=== PATIENT | male | born 1955 | race Caucasian/White ===

== ENCOUNTER 2018-05-28 07:09 | Day surgery (SDC) | payer OTHER, SELFPAY ==
--- NOTE | 2018-05-28 | GASB_PTH ---
PATIENT: SARAH HOSKINS LOC: EN U#:[id number] AGE/SX: 62/M ROOM: RE05/28/[address]: Dr. Eder Bahena MD : 1955 BED: DIS: 05/28/2018 SPEC #: [id number] RECD: 05/28/18 11:06 STATUS: CARLOS ALBERTO GENNY #: [id number] SHANIKA: 05/28/18 00:[address]: Eder Bahena DEPT: SURGICAL PATHOLOGY RECD BY: Darian Stubbs ENTERED: 05/28/18 11:07 SP TYPE: Gastric Bx OTHR DR: Antionette Bolivar PA-C Tissues: Gastric mucous membrane Procedures: Surgery Specimen Level IV HEADER OPERATION: EGD ([facility] [place]) PRE-OP DIAGNOSIS: GERD, esophagitis, pharyngoesophageal dysphagia TISSUE SUBMITTED: Gastric polyp MICROSCOPIC DIAGNOSIS Gastric polyp, biopsy: Consistent with fundic gland polyp. See comment. ALLAN:skinny 05/30/18 COMMENT Immunohistochemistry for Helicobacter pylori can be performed if clinically indicated. Please notify the Laboratory if it is needed. MICROSCOPIC DESCRIPTION Slides are reviewed. GROSS DESCRIPTION Received in fixative is one container labeled with the patient's name and designated gastric polyp. The specimen consists of a pink-red polyp measuring 1 x 1 x 0.7 cm. The apparent base is inked. The specimen is trisected and submitted entirely in one cassette. / SJ:skinny 05/28/18 TC:1 CPT: 20468
[2018-05-28 07:31] VITALS: BP 122/82; PULSE 74; RESP 16; TEMP 36.6; O2SAT 98; BMI 23.3
[2018-05-28 08:21] LABS: Bedside Glucose 126 mg/dL (70-110)
[2018-05-28 08:25] VITALS: BP 122/82; BP 92/60; PULSE 75; RESP 16; TEMP 36.4; O2SAT 95
--- NOTE | 2018-05-28 08:28 | OP.ENDO_ITS ---
Patient Name: Jose Royal Procedure Date: 05/28/2018 8:03 AM Date of : 1955 Age: 62 Procedure: Upper GI endoscopy Indications: Esophageal dysphagia Providers: Eder Bahena MD Referring MD: Karina Bolivar PA-C Medicines: See the Anesthesia note for documentation of the administered medications Patient Profile: This is a 62 year old male. Refer to note in patient chart for documentation of history and physical. Patient has symptoms of dysphagia with both liquids and solids. Complications: No immediate complications. Procedure: Pre-Anesthesia Assessment: - Prior to the procedure, a History and Physical was performed, and patient medications and allergies were reviewed. The patient's tolerance of previous anesthesia was also reviewed. The risks and benefits of the procedure and the sedation options and risks were discussed with the patient. All questions were answered, and informed consent was obtained. Prior Anticoagulants: The patient has taken no previous anticoagulant or antiplatelet agents. ASA Grade Assessment: II - A patient with mild systemic disease. After reviewing the risks and benefits, the patient was deemed in satisfactory condition to undergo the procedure. After obtaining informed consent, the endoscope was passed under direct vision. Throughout the procedure, the patient's blood pressure, pulse, and oxygen saturations were monitored continuously. The gastroscope was introduced through the mouth, and advanced to the second part of duodenum. The upper GI endoscopy was accomplished without difficulty. The patient tolerated the procedure well. Scope In: 8:15:10 AM Scope Out: 8:20:20 AM Total Procedure Duration Time 0 hours 5 minutes 10 seconds Findings: The Z-line was regular and was found 38 cm from the incisors. Multiple 10 mm pedunculated and sessile polyps with no bleeding and no stigmata of recent bleeding were found in the entire examined stomach. There must between 50-100 polyps in his Stomach. A polyp was removed with a hot snare. Resection and retrieval were complete. The examined duodenum was normal. No biopsies or other specimens were collected for this exam. Impression: - Z-line regular, 38 cm from the incisors. - Multiple gastric polyps. Resected and retrieved. - Normal examined duodenum. No specimens collected. Recommendation: - Discharge patient to home. - Resume previous diet. - Continue present medications. - Await pathology results. - Repeat upper endoscopy at appointment to be scheduled for surveillance of multiple polyps. - Perform routine esophageal manometry at appointment to be scheduled. To Evaluate dysphagia. Procedure Code(s): --- Professional --- 08877, Esophagogastroduodenoscopy, flexible, transoral; with removal of tumor(s), polyp(s), or other lesion(s) by snare technique Diagnosis Code(s): --- Professional --- K31.7, Polyp of stomach and duodenum R13.14, Dysphagia, pharyngoesophageal phase CPT copyright 2017 [employer]. All rights reserved. The codes documented in this report are preliminary and upon glass cleaner review may be revised to meet current compliance requirements. MD Eder Gomez MD 05/28/2018 8:28:06 AM This report has been signed electronically. Number of Addenda: 0 Note Initiated On: 05/28/2018 8:03 AM
[2018-05-28 08:30] VITALS: BP 103/73; BP 122/82; PULSE 72; RESP 16; O2SAT 95
[2018-05-28 08:35] VITALS: BP 104/67; BP 122/82; PULSE 72; RESP 16; O2SAT 96
[2018-05-28 08:40] VITALS: BP 104/74; BP 122/82; PULSE 70; RESP 16; TEMP 36.5; O2SAT 96
[2018-05-28 09:01] VITALS: BP 122/82
== END 2018-05-28 09:01 | disposition home or self-care (01) ==
LOC: EN 07:10 → AC 07:11
PROVIDERS: Family Provider Family Medicine; PCP Family Medicine; Referring Provider Surgery; Visit Provider Surgery
PROC: 0DJ08ZZ Inspection of Upper Intestinal Tract, Via Natural or Artificial Opening Endoscopic (ICD-10-PCS; CPT 43235; principal; 2018-05-28 08:25)
DX: K31.7 Polyp of stomach and duodenum (principal); R13.14 Dysphagia, pharyngoesophageal phase; K21.9 Gastro-esophageal reflux disease without esophagitis; I10 Essential (primary) hypertension; E11.9 Type 2 diabetes mellitus without complications; J45.909 Unspecified asthma, uncomplicated; Z79.899 Other long term (current) drug therapy
CPT/HCPCS: 43251; 82962; 88305; J7120

== ENCOUNTER 2018-06-19 07:33 | Day surgery (SDC) | payer OTHER, SELFPAY ==
[2018-06-19 07:44] VITALS: BP 102/87; PULSE 91; RESP 16; TEMP 36.7; O2SAT 98
--- OUTSIDE RECORDS SUMMARY | 2018-08-05 00:46 | XMS RPT_ITS ---
:1955 Author Organization OHIP Support Name Relationship Address Phone [employer] Unavailable [address] + [place] [address] EZE HOSKINS Unavailable [phone] + [place] [address] [employer] Unavailable [address] + [place] [address] EZE HOSKINS Unavailable [address] + [place] [address] [employer] Unavailable [address] + [place] [address] EZE HOSKINS Unavailable [address] + [place] [address] [employer] Unavailable [address] + [place] [address] EZE HOSKINS Unavailable [address] + [place] [address] [employer] Unavailable [address] + [place] [address] EZE HOSKINS Unavailable [address] + [place] [address] EZE HOSKINS Unavailable [address] [facility] [address] + [place] [address] S Unavailable Unavailable Unavailable EZE HOSKINS Unavailable [address] [place] [address] NOT GIVEN Unavailable Unavailable Unavailable MINA GOFF Unavailable Unavailable + EZE HOSKINS Unavailable [address] [place] [address] NOT GIVEN Unavailable Unavailable Unavailable MINA GOFF Unavailable Unavailable + HOSKINS, EZE Unavailable [address] [place] [address] NOT GIVEN Unavailable Unavailable Unavailable DENVERRONYA Unavailable Unavailable + EZE HOSKINS Unavailable [address] [place] [address] NOT GIVEN Unavailable Unavailable Unavailable DENVERRONYA Unavailable Unavailable + EZE HOSKINS Unavailable [address] [place] [address] NOT GIVEN Unavailable Unavailable Unavailable DENVERRONYA Unavailable Unavailable + KARINA HOSKINSBERLY Unavailable [address] [place] [address] NOT GIVEN Unavailable Unavailable Unavailable DENVERMINA Unavailable Unavailable + EZE HOSKINS Unavailable [address] [place] [address] NOT GIVEN Unavailable Unavailable Unavailable DENVERRONYA Unavailable Unavailable + EZE HOSKINS Unavailable [address] [place] [address] NOT GIVEN Unavailable Unavailable Unavailable DENVERRONYA Unavailable Unavailable + Care Team Providers Name Role Phone HORN, BRICE DPM Admitting Unavailable HORN, BRICE DPM Attending Unavailable HORN, BRICE DPM Primary Care Unavailable NEWPORT, EZE Consulting Unavailable PROVIDER, UNKNOWN Consulting Unavailable HORN, BRICE DPM Admitting Unavailable HORN, BRICE DPM Attending Unavailable HORN, RBICE DPM Primary Care Unavailable [place], EZE Consulting Unavailable PROVIDER, UNKNOWN Consulting Unavailable HORN, BRICE DPM Admitting Unavailable HORN, BRICE DPM Attending Unavailable HORN, BRICE DPM Primary Care Unavailable NEW[place], EZE Consulting Unavailable NEW[place], EZE Referring Unavailable PROVIDER, UNKNOWN Consulting Unavailable ANATOLY FALCON DO Admitting Unavailable ANATOLY FALCON DO Attending Unavailable [place], EZE Referring Unavailable ANATOLY FALCON DO Primary Care Unavailable [place], EZE Consulting Unavailable PROVIDER, UNKNOWN Consulting Unavailable DR CELINA APONTE Admitting Unavailable FADI, DR CELINA Aburto Attending Unavailable DR CELINA APONTE Primary Care Unavailable [place], EZE Consulting Unavailable NEW[place], EZE Referring Unavailable PROVIDER, UNKNOWN Consulting Unavailable [place], EZE Admitting Unavailable [place], EZE Attending Unavailable NEW[place], EZE Primary Care Unavailable [place], EZE Consulting Unavailable PROVIDER, UNKNOWN Consulting Unavailable ARELY, ONOFRE T Admitting Unavailable ARELY, ONOFRE T Attending Unavailable ARELY, ONOFRE T Primary Care Unavailable [place], EZE Consulting Unavailable PROVIDER, UNKNOWN Consulting Unavailable HILLS, EZE Admitting Unavailable HILLS, EZE Attending Unavailable HILLS, EZE Primary Care Unavailable HILLS, EZE Consulting Unavailable PROVIDER, UNKNOWN Consulting Unavailable [place], Eder Attending Unavailable [place], Eze PA-C Referring Unavailable Calabretta, Trevon Attending Unavailable [place], Eder Referring Unavailable [place], Eder Attending Unavailable [place], Eze PA-C Referring Unavailable [place], Eder Attending Unavailable Shruti, Eder Referring Unavailable [place], Eze PA-C Primary Care Unavailable Calabretta, Trevon Attending Unavailable Calab[place]ta, Trevon Referring Unavailable [place], Eze PA-C Primary Care Unavailable Shruti, Eder Attending Unavailable PROBLEMS PROBLEMS DATE TYPE CONDITION / CODE ATTENDING STATUS SOURCE Unknown K21.9 - Cal[place]andro, Active [place] 8 Gastro-esophageal Trevon [facility] reflux disease without Hospital esophagitis / Repository K21.9(ICD-10) Unknown R13.14 - Dysphagia, [place], Active [place] 8 pharyngoesophageal [facility] phase / R13.14(ICD-10) Hospital Repository Principle Sebaceous cyst / ARELY, Active Jez [place] 8 Diagnosis L723(ICD-10) [place] [facility] Repository PROCEDURES PROCEDURES No Procedure Records FoundRESULTS RESULTS SURGERY VISIT REPORT Observed: 06/30/2018 Status: F Source: [place] 3:53 PM [facility] REPOSITORY [facility] [address] [place] [address] [address] [place] [address] OFFICE VISIT Date of Service: 06/26/18 MR#: [id number] Acct: [id number] Name: SARAH HOSKINS Rep #: [id number] : 1955 Provider: Eder Bahena MD Age/Sex: 62/M Location: [facility] Status: Signed Intake Intake Visit Reasons: mano results Chief Complaint: post manometry Transmitter Chief Required: No Is patient in pain?: No Allergies oxycodone [From Percocet] Adverse Reaction (Verified 06/26/18 12:52) makes him feel funny Medications Lisinopril [Zestril] 20 mg PO DAILY 04/13/16 [History Confirmed 05/28/18] albuterol sulfate HFA 90 mcg/actuation aerosol inhaler 1 puff INHALATION Q6H PRN 05/15/18 [History Confirmed 05/28/18] omeprazole 40 mg capsule,delayed release 40 mg PO DAILY 05/15/18 [History Confirmed 05/28/18] ranitidine 150 mg capsule 300 mg PO DAILY cap 05/15/18 [History Confirmed 05/28/18] Subjective Details: Patient is status post an EGD for dysphasia completed on 05/28/2018. Patient was noted to have a regular Z line located at 38 cm from the incisors. Patient had multiple polyps located within his abdomen. I biopsied 1 of them and this came back as a fundic gland polyp. Patient also underwent esophageal manometry which showed 10 swallows analyzed. There was good bolus clearance and no motility disorder identified. He had a normal lower esophageal sphincter pressure. It was an entirely normal study. Objective Details: Patient's abdomen is soft and nontender. Assessment AND Plan Problems 1. GERD (gastroesophageal reflux disease) K21.9 2. Dysphagia R13.10 Plan At this point I would like for the patient to restart his proton pump inhibitor. He does get good relief with this at times. I am going to see him back if the proton pump inhibitor is not working. If that is the case we will need to perform an EGD with 48-hour pH probe to then evaluate him to see if he will need a Wiley fundoplication. If he continues to do well he will need to have another esophagogastroduodenoscopy in 3 years. 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 Coding Level of Care Code Off vis,est,level 2 Diagnoses GERD (gastroesophageal reflux disease) K21.9 Dysphagia R13.10 06/30/18 3172 <Electronically signed by Eder Bahena MD> Date Eder Bahena MD Cosigner Signature: Date (if applicable) CC: INA Bolivar OPERATIVE REPORT - Observed: 05/28/2018 Status: F Source: [place] ENDOSCOPY 8:28 AM [facility] REPOSITORY [facility] Medical Records Department [address] [place] [address] Operative Report - Endoscopy MR#: [id number] Acct: [id number] Name: SARAH HOSKINS Rep #: [id number] : 1955 62 From: Eder Bahena MD PCP: Eze Bolivar PA-C Status: [facility] Patient Name: Sarah Hoskins Procedure Date: 05/28/2018 8:03 AM Date of : 1955 Age: 62 Procedure: Upper GI endoscopy Indications: Esophageal dysphagia Providers: Eder Bahena MD Referring MD: Karina Bolivar PA-C Medicines: See the Anesthesia note for documentation of the administered medications Patient Profile: This is a 62 year old male. Refer to note in patient chart for documentation of history and physical. Patient has symptoms of dysphagia with both liquids and solids. Complications: No immediate complications. Procedure: Pre-Anesthesia Assessment: - Prior to the procedure, a History and Physical was performed, and patient medications and allergies were reviewed. The patient's tolerance of previous anesthesia was also reviewed. The risks and benefits of the procedure and the sedation options and risks were discussed with the patient. All questions were answered, and informed consent was obtained. Prior Anticoagulants: The patient has taken no previous anticoagulant or antiplatelet agents. ASA Grade Assessment: II - A patient with mild systemic disease. After reviewing the risks and benefits, the patient was deemed in satisfactory condition to undergo the procedure. After obtaining informed consent, the endoscope was passed under direct vision. Throughout the procedure, the patient's blood pressure, pulse, and oxygen saturations were monitored continuously. The gastroscope was introduced through the mouth, and advanced to the second part of duodenum. The upper GI endoscopy was accomplished without difficulty. The patient tolerated the procedure well. Scope In: 8:15:10 AM Scope Out: 8:20:20 AM Total Procedure Duration Time 0 hours 5 minutes 10 seconds Findings: The Z-line was regular and was found 38 cm from the incisors. Multiple 10 mm pedunculated and sessile polyps with no bleeding and no stigmata of recent bleeding were found in the entire examined stomach. There must between 50-100 polyps in his Stomach. A polyp was removed with a hot snare. Resection and retrieval were complete. The examined duodenum was normal. No biopsies or other specimens were collected for this exam. Impression: - Z-line regular, 38 cm from the incisors. - Multiple gastric polyps. Resected and retrieved. - Normal examined duodenum. No specimens collected. Recommendation: - Discharge patient to home. - Resume previous diet. - Continue present medications. - Await pathology results. - Repeat upper endoscopy at appointment to be scheduled for surveillance of multiple polyps. - Perform routine esophageal manometry at appointment to be scheduled. To Evaluate dysphagia. Procedure Code(s): --- Professional --- 80406, Esophagogastroduodenoscopy, flexible, transoral; with removal of tumor(s), polyp(s), or other lesion(s) by snare technique Diagnosis Code(s): --- Professional --- K31.7, Polyp of stomach and duodenum R13.14, Dysphagia, pharyngoesophageal phase CPT copyright 2017 [employer]. All rights reserved. The codes documented in this report are preliminary and upon senior reservations agent review may be revised to meet current compliance requirements. MD Eder Gomez MD 05/28/2018 8:28:06 AM This report has been signed electronically. Number of Addenda: 0 Note Initiated On: 05/28/2018 8:03 AM 05/28/1828 Date Eder Ellisignmalina Signature: Date (if indicated) CC: INA Bolivar; Eedr Bahena MD Date Dictated: 05/28/18802 Date Transcribed: Under Water Assistant: MILAGROS Signed BEDSIDE GLUCOSE Collected: 05/28/2018 Status: F Source: [place] 7:25 AM [facility] REPOSITORY TYPE CODE TESTS RESULT OUT OF REFERENCE UNITS RANGE LAB L501.080 70-110 mg/dL High BEDSIDE GLU 126 Result Comment: MANAGEMENT OF PATIENT CARE PER NURSING PROTOCOL Performed By: #### L501.080 #### [facility] Point of Care [address] [place] [address] GASTRIC BIOPSY Observed: 05/28/2018 Status: F Source: [place] 12:00 AM [facility] REPOSITORY Patient: SARAH HOSKINS : 1955 (62/M) Acct Num: [id number] Phys: Shruti BERUMEN,Eder Unit Num: [id number] Loc: EN Specimen: [id number] Received: 05/28/181105 Spec Type: Gastric Bx TISSUES 1 TISSUES: Gastric mucous membrane COMMENT Immunohistochemistry for Helicobacter pylori can be performed if clinically indicated. Please notify the Laboratory if it is needed. GROSS DESCRIPTION Received in fixative is one container labeled with the patient's name and designated gastric polyp. The specimen consists of a pink- red polyp measuring 1 x 1 x 0.7 cm. The apparent base is inked. The specimen is trisected and submitted entirely in one cassette. / ALLAN:skinny 05/28/18 TC:1 CPT: 54459 HEADER OPERATION: EGD ([facility] PRE-OP DIAGNOSIS: GERD, esophagitis, pharyngoesophageal dysphagia TISSUE SUBMITTED: Gastric polyp MICROSCOPIC DESCRIPTION Slides are reviewed. MICROSCOPIC DIAGNOSIS Gastric polyp, biopsy: Consistent with fundic gland polyp. See comment. SJ:skinny 05/30/18 Signed Myles Diaz 05/30/18 <signature on file> Performed By: #### PGASB #### [facility] [address] [place], [address] SURGERY VISIT REPORT Observed: 05/15/2018 Status: F Source: [place] 3:12 PM [facility] REPOSITORY [facility] [address] [place] [address] OFFICE VISIT Date of Service: 05/15/18 MR#: [id number] Acct: [id number] Name: SARAH HOSKINS Rep #: [id number] : 1955 Provider: Eder Bahena MD Age/Sex: 62/M Location: [facility] Status: Signed Intake Vital Signs05/15/18 Height 5 ft 9 in 05/15/18 Weight: 150 lb 4 oz 05/15/18 Body Mass Index (BMI) 22.1 05/15/18 Blood Pressure 127/78 H Intake Visit Reasons: Upper Scope issues swallowing Chief Complaint: dysphagia, hx dilatation Transmitter Chief Required: No Is patient in pain?: No Allergies oxycodone [From Percocet] Adverse Reaction (Verified 05/15/18 14:35) makes him feel funny Medications Lisinopril [Zestril] 20 mg PO DAILY 04/13/16 [History Confirmed 05/15/18] albuterol sulfate HFA 90 mcg/actuation aerosol inhaler 1 puff INHALATION Q6H PRN 05/15/18 [History Confirmed 05/15/18] omeprazole 40 mg capsule,delayed release 40 mg PO DAILY 05/15/18 [History Confirmed 05/15/18] ranitidine 150 mg capsule 300 mg PO DAILY cap 05/15/18 [History Confirmed 05/15/18] PFSH Medical History Asthma (Acute) Back pain (Acute) Esophageal stricture (Acute) GERD (gastroesophageal reflux disease) (Acute) History of esophageal dilatation (Acute) HTN (hypertension) (Chronic) Surgical History History of colonoscopy (Acute) History of esophagogastroduodenoscopy (EGD) (Acute) History of hernia repair (Acute) Family History Father Diabetes Hypertension Mother Cancer uterine Social History Smoking Status: Never smoker HPI HPI HPI: SARAH HOSKINS, is a 62 M who presents to the office today for evaluation for an EGD. Patient has had numerous EGDs in the past all of them done by Dr. Mejia at the [facility]. He has had numerous dilatations with Dr. Mejia as well. Over the last several months he has noticed some complaints of difficulty swallowing. Feels as if something is getting stuck in his esophagus. He states that it has been located in the neck throat and substernal areas. Seems to be initially solids would only aggravate him now sometimes liquids also aggravate him. He is currently taking omeprazole for his dysphasia and reflux symptoms. ROS General General: Yes fatigue; no weight change, appetite, colon cancer, breast cancer or weakness HEENT HEENT: Yes difficulty swallowing; no eye injury, eye surgery, swollen glands or hoarseness Endo Endocrine: No thyroid disease, diabetes mellitus, thyroid cancer, Hair loss, heat intolerance or cold intolerance Musc Musculoskeletal: Yes back problems; no arthritis, rheumatoid arthritis, gout or joint pain Cardio Cardiovascular: Yes high blood pressure; no murmur, pacemaker, heart disease, atrial fibrillation, heart attack, heart stent, palpitations, shortness of breat with exertion or chest pain Resp Respiratory: No shortness of breath, No sleep apnea, No cough, No COPD, Yes asthma, No emphysema, No wheezing Gastro Gastrointestinal: No abdominal pain, No nausea or vomiting, No diarrhea, No constipation, No blood in stool, Yes acid reflux, No hemorrhoids, No ulcers, No gallbladder problem, No black,tarry stools Additional Details: pancreatitis Michael Hematologic: No blood thinners, No blood disorders, No bleeding, No anemia, No blood clots Neuro Neurologic: No weakness Exam Const General: well developed, no acute distress, well hydrated Orientation: oriented to person, oriented to place, oriented to time [facility] Head: normocephalic, atraumatic Ears: external ears normal Mouth: moist mucous membranes Eyes Sclera: sclerae normal Pupils: normal by confrontation Neck Neck: no lymphadenopathy noted Neck mass: No Thyroid: symmetrical, thyroid normal Chest Chest palpation AND inspection: normal inspection of the chest Resp Effort AND Inspection: normal respiratory effort Auscultation: clear to auscultation bilaterally Percussion: percussion normal Cardio Rate: regular rate Rhythm: regular rhythm Heart Sounds: no murmurs GI Palpation: soft, no masses, no hepatosplenomegaly, nontender Rectal Exam: other Other: Rectal exam deferred. Extrem General: no clubbing, cyanosis or edema, normal to inspection Assessment AND Plan Problems 1. Gastroesophageal reflux disease, esophagitis presence not specified K21.9 2. Pharyngoesophageal dysphagia R13.14 Plan I have discussed the above with the patient. I have offered the patient esophagogastroduodenoscopy for evaluation. I have explained the risks/benefits of the procedure and described the procedure. I have discussed the risks with the patient, including but not limited to: infection, bleeding, perforation of the GI tract requiring emergency surgery, inability to complete the procedure, injury to any internal organs, complications of anesthesia, etc. - the patient understands and agrees to proceed. I have answered all the patient's questions to the patient's satisfaction and the patient has no further questions. The patient has been given instructions for the colon cleansing preparation. Orders Orders: Coding Level of Care Code Off vis,new,level 3 Diagnoses Gastroesophageal reflux disease, esophagitis presence not specified K21.9 Esophagitis presence: esophagitis presence not specified Pharyngoesophageal dysphagia R13.14 Dysphagia type: pharyngoesophageal phase 05/15/18 1512 <Electronically signed by Eder Bahena MD> Date Eder Bahena MD Cosigner Signature: Date (if applicable) CC: INA Bolivar FINAL SURGICAL Observed: 04/14/2018 Status: F Source: [facility] PATHOLOGY REPORT 10:27 [facility] REPOSITORY . Pathology Reports Accession: Collected Date/Time: Received Date/Time: Pathologist: [id number] 04/14/2018 10:27 EDT 04/15/2018 08:05 MD NOLBERTO ORTIZ Final Surgical Pathology Report DIAGNOSIS: RIGHT SHOULDER, EXCISION: - ELASTOFIBROMA (SEE COMMENT). Comment: Immunohistochemical stains and special stains with appropriate controls were used in the evaluation of this specimen. These stains include muscle specific actin, CD68, trichrome stain and elastic stain. 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 This case was also reviewed by Dr. Enrique Parson who agrees with the above diagnosis. COMMENT: [facility] #[id number] CLINICAL INFORMATION: SEBACEOUS CYST SPECIMEN: A SKIN, CYST- RIGHT SHOULDER GROSS DESCRIPTION: Received in formalin is an ovoid somewhat lobulated segment of yellow-tadeo tissue measuring 3.0 x 1.5 x 0.6 cm. The specimen is sectioned. Cut surface is tadeo-white and fibrous. RS-2 dictated by Hunter Guillen M.D. Dictated by NOLBERTO GUILLEN MD MICROSCOPIC DESCRIPTION: Slides reviewed. Electronically Signed by Pathology Report verified by [facility] Electronically signed by NOLBERTO GUILLEN MD Sign out Date: 04/18/2018 16:13 Performing Lab: [facility], [address] [place] [address] Performed By: #### SPFR #### [place] [address] ORBITS (FOR MRI Observed: 03/12/2018 Status: F Source: [place] ONLY) 10:02 AM [place] [address] Patient: SARAH HOSKINS Phone#: : 1955 Age: 62 Gender: M Pt. Type: Out Account: [id number] Location: [facility] Ordering: [facility] Exam Date: 03/12/2018/9:41 Family Phys: Charge Code: 225862 Physician: [place] Order #: [id number] [id number] Dose#: PROCEDURE: X-RAY ORBIT BILAT MRI SCREENING FOREIGN BODY COMPARISON: None. INDICATIONS: Clearance for MRI FINDINGS: ORBITS: Negative for metallic foreign body. OTHER: Mucosal thickening is present in the right maxillary sinus. CONCLUSION: 1. There is no radiopaque foreign body identified in the orbits. Dictated by: Roselia Olmstead MD on 03/12/2018 at 14:03 Approved by: Roselia Olmstead MD on 03/12/2018 at 14:03 EMERGENCY REPORT Observed: 11/14/2017 Status: F Source: [place] 7:32 AM [facility] EMERGENCY ROOM REPORT NAME ACCOUNT SEX AGE ADMIT DISCHARGE PT MED. RECORD# NUMBER DATE DATE TYPE SARAH HOSKINS [id number] M 62 11/12/17 11/12/17 3 L [address] ROOM: ER DATE OF : 1955 DICTATING PHYSICIAN: Celina Aponte HISTORY OF PRESENT ILLNESS: The patient came in. The patient had an allergic reaction to his right hand. He was stung by a bee an hour prior and then he started having difficulty swallowing. He was able to breathe. He had no chest pain. He had shortness of breath. He had this throat sensation and presents to the emergency department. He says he has been stung by bees in the past. PAST MEDICAL HISTORY: Unremarkable. PAST SURGICAL HISTORY: Hernia. REVIEW OF SYSTEMS: Eight systems reviewed and negative except as mentioned above. PHYSICAL EXAMINATION: He is afebrile. Pulse 84, respirations 16, blood pressure 150/102, and pulse ox 99% on room air. Head is normocephalic and atraumatic. Eyes: Pupils are equal, round, and reactive to light. Extraocular muscles intact. Nares are patent. Throat has good oral moisture. Uvula is midline. Neck is supple without petechiae or rash. Heart without murmur. S1 equals S2. No S3 or S4 appreciated. Lungs are clear to auscultation bilaterally. No rales, rhonchi, or retractions. Abdomen is soft, nontender, and nondistended. Skin is warm and dry. EMERGENCY DEPARTMENT COURSE AND TREATMENT: An IV was established. The patient was given fluids. He was given Solu-Medrol and Benadryl. DIAGNOSIS: Allergic reaction bee sting to right hand with generalized reaction. PLAN/DISPOSITION: I did write him for an EpiPen, and he will be discharged in stable condition. Dictated By: Celina Aponte DO 11/12/17 23:14 JOB #: [id number] Transcribed By: am 11/13/17 15:25 Electronically signed by: Page 1 of 2 SARAH HOSKINS Emergency Room Report ES Celina Aponte D.O. 11/14/17 07:32 Page 2 of 2 SARAH HOSKINS Emergency Room Report EMERGENCY REPORT Observed: 08/30/2017 Status: F Source: [place] 8:29 [place] [facility] [place] NAME NUMBER SEX AGE ADMIT DISC TYPE MED.RECORD# GATO Awad [id number] M 61 08/20/17 08/20/17 E.R. [id number] ROOM:ER-I DATE OF :1955 PHYSICIAN NO.:[id number] PHYSICIAN NAME:E-Sign: Dr. Anatoly Falcon D.O. PHYSICIAN:YOLANDA CHASE PHYSICIAN: YOLANDA CARDOSO ADDENDUM: DIAGNOSTIC DATA: X-rays obtained of the right forearm were negative for any fracture. Ultrasound of the right upper arm was negative for DVT. EMERGENCY DEPARTMENT COURSE AND TREATMENT: The patient was placed in an Andrew warp to the right forearm and placed on Naprosyn 500 mg 1 p.o. b.i.d. with food, dispensed #20 with no refill. DIAGNOSIS: Tendinitis right forearm. PLAN/DISPOSITION: He is to rest, no heavy lifting, repetitive, or exertional activities. Moist heat to the affected area 20 minutes at a time 4 to 6 times per day, and to follow up with his primary care physician in 3 to 5 days for reevaluation. His primary care physician is Karina Bolivar. Nursing notes reviewed. Discussed all the findings with the patient, and he verbalized understanding. D: Anatoly Falcon DO TD: 14:57 JOB #: [id number] Electronically signed by: E-Sign: Dr. Anatoly Falcon D.O. 08/30/17 08:29 Transcribed by: am 08/21/2017 17:56 Electronically signed by E-Sign: Dr. Anatoly Falcon D.O. 08/30/17 08:29 EMERGENCY ROOM REPORT GATO SARAH Delmi 1 [facility] EMERGENCY DEPARTMENT REPORT NAME NUMBER SEX AGE ADMIT DISC TYPE MED.RECORD# GATO Awad [id number] M 61 08/20/17 08/20/17 E.R. [id number] ROOM:ER-I DATE OF :1955 PHYSICIAN NO.:[id number] PHYSICIAN NAME:E-Sign: Dr. Anatoly Falcon D.O. PHYSICIAN:YOLANDA CHASE PHYSICIAN: YOLANDA CARDOSO EMERGENCY ROOM REPORT GATO Awad 2 EMERGENCY REPORT Observed: 08/30/2017 Status: F Source: [facility] [place] 8:[place] [facility] [place] [place] REPORT NAME NUMBER SEX AGE ADMIT DISC TYPE MED.RECORD# GATO Awad [id number] M 61 08/20/17 08/20/17 Minal [id number] ROOM:ER-I DATE OF :1955 PHYSICIAN NO.:[id number] PHYSICIAN NAME:E-Sign: Dr. Anatoly Falcon D.O. PHYSICIAN:YOLANDA CARDOSO FAMILY PHYSICIAN: YOLANDA CARDOSO HISTORY OF PRESENT ILLNESS: This is a 61-year-old white male complaining of right forearm pain and swelling that started yesterday, worse today. 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 He started having right forearm pain then, but it was much worse and much more swollen today. He did have foot surgery just last week, so he called his doctor, and she advised him to come into the emergency room to rule out a blood clot. The patient denies any chest pain or shortness of breath. He presently rates the pain as an 8 on a severity scale of 1 to 10. Pain is worse with movement. Denies any associated numbness or tingling. Denies any chest pain or shortness of breath. REVIEW OF SYSTEMS: Obtained, and ten-point review of systems was negative with the exception of right forearm pain and swelling. The patient denies any chest pain, shortness of breath, cough, sputum, wheezing, abdominal pain, nausea, vomiting, diarrhea, constipation, headache, numbness or tingling, blurred or double vision. Further review of systems is negative. PHYSICAL EXAMINATION: The patient is alert and oriented x3. He presently appears in no acute distress. He is pleasant and cooperative. HEENT: Head appears atraumatic. Pupils are equal and reactive to light. Red reflex intact bilaterally. Extraocular muscles are intact. No conjunctival injection. Nose exhibits no rhinorrhea or epistaxis. Mouth: Mucous membranes are moist. No pharyngeal erythema. Uvula is midline and elevates. Neck is supple. Trachea is midline. No JVD or lymphadenopathy. No posterior cervical tenderness. Lungs: Clear to auscultation in all lung leahy. No adventitious sounds are noted. CV: Heart rate and rhythm are regular without murmur. Abdomen is soft and nontender with normoactive bowel sounds x4 quadrants. No guarding or rigidity. Extremities: The patient is swollen and tender over the right forearm and the mid to right distal radius region. The swelling is very focal over the dorsal aspect of the right radius region. He has a good right radial pulse. He has good sensation to light touch in all digits of the right hand. Capillary refill is less than 2 seconds. No bony deformity or ecchymosis, but he is definitely swollen and tender over this area. EMERGENCY DEPARTMENT COURSE AND TREATMENT/PLAN/DISPOSITION: I suspect he has a tendinitis due to the repetitive wrenching, but he has done that plenty of times before and never had pain or swelling, so with his recent surgery we will get a venous Doppler to rule out DVT, and I will get some x-rays to rule out a stress fracture and then reevaluate. DIAGNOSIS: D: Anatoly Falcon DO TD: 14:17 JOB #: [id number] Electronically signed by: E-Sign: Dr. Anatoly Falcon D.O. 08/30/17 08:29 EMERGENCY ROOM REPORT HOSKINS SARAH Awad [address] [place] [address] EMERGENCY DEPARTMENT REPORT NAME NUMBER SEX AGE ADMIT DISC TYPE MED.RECORD# GATO Awad [id number] M 61 08/20/17 08/20/17 E.RMandi [id number] ROOM:ER-I DATE OF :1955 PHYSICIAN NO.:[id number] PHYSICIAN NAME:E-Sign: Dr. Anatoly Falcon D.O. PHYSICIAN:YOLANDA CHASE PHYSICIAN: YOLANDA CARDOSO Transcribed by: am 08/21/2017 16:48 Electronically signed by E-Sign: Dr. Anatoly Falcon D.O. 08/30/17 08:29 EMERGENCY ROOM REPORT GATO Awad 2 CV VENOUS ARM RT Observed: 08/20/2017 Status: F Source: [facility] 2:56 PM [place] [address] Patient: SARAH HOSKINS Phone#: : 1955 Age: 61 Gender: M Pt. Type: ER Account: [id number] Location: [facility] Ordering: ANATOLY FALCON Exam Date: 08/20/2017/13:59 Family Phys: EZE BOLIVAR Charge Code: [id number] Physician: Benton Order #: [id number] DLP Dose#: PROCEDURE: VENOUS DOPPLER RT ARM COMPARISON: None. INDICATIONS: Swelling TECHNIQUE: Color duplex Doppler ultrasound evaluation analysis was performed in the usual manner. AR AUTOMATIC PILOT MECHANIC RISK FACTORS FOR VENOUS DISEASE: EXAMINATION: RIGHT +Present -Reduced o Absent LEFT SPONT PHASIC AUG REFLUX COMP SPONT PHASIC AUG REFLUX COMP + + + o + JUGULAR + + + o + + + + o + SUBCL.(prox) + + + o + AXILLARY V + + + o + BRACHIAL V + CEPHALIC V + BASILIC V + + + o + RADIAL V + + + o + ULNAR V SONOGRAPHERS NOTES: FINDINGS: THROMBI: None visible. COMPRESSIBILITY: Normal. OTHER: Negative. Continued Report - Page 2 of 2 Patient: SARAH HOSKINS Phone#: : 1955 Age: 61 Gender: M Pt. Type: ER Account: [id number] Location: 052 Ordering: ANATOLY FALCON Exam Date: 08/20/2017/13:59 Family Phys: RxRevu Charge Code: [id number] Physician: Benton Order #: [id number] DLP Dose#: CONCLUSION: 1. There is no evidence of superficial or deep vein thrombus. Dictated by: Roselia Olmstead MD on 08/20/2017 at 15:16 Approved by: Roselia Olmstead MD on 08/20/2017 at 15:16 FOREARM RT Observed: 08/20/2017 Status: F Source: [facility] 2:31 PM [place] [address] Patient: SARAH HOSKINS Phone#: : 1955 Age: 61 Gender: M Pt. Type: ER Account: [id number] Location: 052 Ordering: ANATOLY FALCON Exam Date: 08/20/2017/13:53 Family Phys: RxRevu Charge Code: [id number] Physician: Benton Order #: [id number] DLP Dose#: PROCEDURE: X-RAY FOREARM RT 2 VIEWS COMPARISON: None. INDICATIONS: Pain FINDINGS: BONES: There is a hypertrophic spur at the radial head. There is no recent fracture identified. Chondrocalcinosis is present. SOFT TISSUES: Negative. No visible soft tissue swelling. EFFUSION: None visible. OTHER: Negative. CONCLUSION: No acute disease. Mild degenerative changes are present. Dictated by: Roselia Olmstead MD on 08/20/2017 at 14:44 Approved by: Roselia Olmstead MD on 08/20/2017 at 14:44 OPERATIVE PROCEDURES Observed: 08/16/2017 Status: F [facility] [place] NAME NUMBER SEX AGE ADMIT DISC TYPE MED.RECORD# GATO Awad [id number] M 61 08/14/17 08/14/17 O/P [id number] ROOM:[facility] DATE OF :1955 PHYSICIAN NO.:[id number] PHYSICIAN NAME:E-SIGN BRICE ROWELL PHYSICIAN:KARINA BOLIVAR DATE OF SURGERY: August 14, 2017 SURGEON: Brice Rowell DPM SPORTS PHOTOGRAPHER: None. ANESTHESIOLOGIST: Clifford Gaston CRNA ANESTHETIC: MAC with local of 10 mL of 1% lidocaine plain. PREOPERATIVE DIAGNOSIS: Painful hallux rigidus of right foot. POSTOPERATIVE DIAGNOSIS: Painful hallux rigidus of right foot. OPERATION PERFORMED: Cheilectomy of right first metatarsophalangeal joint. COMPLICATIONS: None. ESTIMATED BLOOD LOSS: Minimal. DESCRIPTION OF OPERATION: Under mild sedation, the patient was brought to the operating room and placed on the operating table in the supine position. The pneumatic ankle tourniquet was placed on the patient's right ankle. Following IV sedation, local anesthesia was obtained about the right first metatarsophalangeal joint utilizing a total of 10 mL of 1% lidocaine plain. The foot was scrubbed, prepped and draped in the usual aseptic manner. The right foot was then elevated to exsanguinate the limb, and the pneumatic ankle tourniquet was inflated to 250 mmHg. Attention was directed to the right first metatarsophalangeal joint, where approximately a 6 cm linear longitudinal incision was made medial and parallel to the extensor hallucis longus tendon. The incision was deepened through sharp and blunt dissection down to the level of the capsule, where a linear longitudinal capsulotomy was performed in an effort to expose the first metatarsophalangeal joint. The capsular and periosteal tissues were dissected free and retracted. All superficial bleeding vessels were cauterized and ligated as necessary. The first metatarsophalangeal joint was inspected, and there was a large loose joint mound approximately one inch in diameter which was easily removed. There was a significant amount of hyperostosis formation at the dorsal aspect of the first metatarsal head and the base of the proximal phalanx. Utilizing a sagittal saw, the hypertrophic bone was resected and passed from the operative field. The rongeur was utilized as well for the affected areas, and the joint was inspected. Approximately 50% of cartilage loss was noted at the first metatarsal head, and subchondral drilling was performed with a 0.028 inch K wire. The wound was flushed with copious amounts of normal sterile saline, and all rough edges within the bones were smoothed utilizing a bone rasp. Significant improvement of range of motion in both OPERATIVE REPORT GATO Awad [address] [place] [address] OPERATIVE REPORT NAME NUMBER SEX AGE ADMIT DISC TYPE MED.RECORD# GATO Awad [id number] M 61 08/14/17 08/14/17 O/P [id number] ROOM:[facility] DATE OF :1955 PHYSICIAN NO.:[id number] PHYSICIAN NAME:YAHAIRA ROWELL PHYSICIAN:KARINA BOLIVAR dorsiflexion and plantar flexion as well as abduction/adduction of the toe was noticed. There is a slight lateral curvature of the proximal phalanx which we had talked about preoperatively. This does make it difficult for the patient to wear sandals. However, with the freeing up of the joint the toe is able to be moved much better, and it was decided intraoperatively that the proximal phalanx did not require an Valdez procedure given the very slight curvature noted. The room for error would have been large. This was explained to the patient both preoperatively and postoperatively as well as his . The periosteal and capsular structures were reapproximated and coapted utilizing 3-0 Vicryl sutures. Subcutaneous tissues were reapproximated and coapted utilizing 4-0 Vicryl sutures. Skin was reapproximated and coapted utilizing 4-0 Monocryl sutures. Upon completion of the procedure, the incision was reinforced with Steri-Strips and dressed with a sterile compressive dressing consisting of 4x4s, Radha and Kerlix. The pneumatic ankle tourniquet was deflated, and a prompt hyperemic response was noted to all digits of the right foot. An Andrew wrap was then applied. The patient tolerated the procedure and anesthesia well. He was transferred to the recovery room with vital signs stable and vascular status intact to all toes of the right foot. Following a period of postoperative monitoring, he will be discharged home with written and oral postoperative instructions. He is to keep the dressing clean, dry and intact, avoid excessive ambulation, and wear the surgical shoe at all times while ambulating. Contact Dr. Rowell for all postoperative follow-up care and if any problems arise. A postoperative prescription was written for Vicodin. He should take it as directed. D: Brice Rowell DPM TD: 09:10 JOB #: [id number] Electronically signed by: YAHAIRA ROWELL 08/16/17 16:02 Transcribed by: chandu 08/15/2017 06:49 OPERATIVE REPORT GATO Awad 2 HISTORY AND PHYSICAL Observed: 08/16/2017 Status: F Source: [facility] 4[place]02 [place] [facility] [place] PHYSICAL NAME NUMBER SEX AGE ADMIT DISC TYPE MED.RECORD# GATO Awad [id number] M 61 O/P [id number] ROOM: DATE OF :1955 PHYSICIAN NO.:[id number] PHYSICIAN NAME:E-SIGN BRICE ROWELL PHYSICIAN:KARINA BOLIVAR PREOPERATIVE DIAGNOSES: 1. Painful hallux rigidus right foot. 2. Hammertoe right hallux. CHIEF COMPLAINT: Scheduled for cheilectomy right foot and possible Valdez osteotomy right foot hallux. HISTORY OF PRESENT ILLNESS: The patient is known to me from my private where he had presented complaining of significant pain to the right foot. 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 Now that he is retired from that, he still has difficulty with kneeling, going up and down stairs. He states that changing shoes, wearing better boots, and more well-structured soles in his shoes and work boots has not helped his pain at all. He states that the toe joint does not move, and he notices that it is very difficult to wear sandals or even flip-flops in the summer because he cannot separate the toes 1 and 2 from each other. They are becoming increasingly painful as they rub up against each other. The patient feels like the toe joint is swollen all the time with a significant hard swelling. Radiographs were taken and reviewed with the patient in detail, which include a significant amount of hyperostosis formation with a very large joint mouse at the dorsal aspect of the first metatarsal phalangeal joint. This would account for the patient's lack of movement at the joint and significant pain. Reviewed treatments, which included conservative and surgical. Risk, complications, and benefits were reviewed in detail with the patient. No guarantees were given. The patient states with trying conservative methods to reduce the pain nothing helped, and he would like to try to reduce the amount of bony formation, which is severely limiting the patient's shoe choice. No guarantees were given. Discussed possibility of failure of the procedure, including infections, slow healing, lack of significant improvement in the range of motion and continued pain. We also discussed the possibility of needing to reduce the deformity of the proximal phalanx of the hallux, which gives him a slightly laterally placed hallux as there is no bunion deformity. If ample movement is to be noted intraoperatively at the first metatarsal phalangeal joint, the proximal phalanx osteotomy will not need to be performed. This will be assessed intraoperatively. ALLERGIES: No known drug allergies. IMPRESSION/PLAN: The patient states he understands, all questions were answered, and he presents to our office for preoperative discussion and consent was reviewed and signed. The patient will report to [facility] the morning of August 14 for outpatient surgical intervention. D: Brice Rowell DPM [facility] HISTORY & PHYSICAL NAME NUMBER SEX AGE ADMIT DISC TYPE MED.RECORD# GATO Awad [id number] M 61 O/P [id number] ROOM: DATE OF :1955 PHYSICIAN NO.:[id number] PHYSICIAN NAME:YAHAIRA ROWELL PHYSICIAN:KARINA BOLIVAR TD: 11:06 JOB #: [id number] Electronically signed by: YAHAIRA ROWELL 08/16/17 16:02 Transcribed by: am 08/13/2017 13:49 Update to H&P: [ ] No changes: I have examined the patient and reviewed the H&P and there are [ ] As previously dictated with the following changes: PHYSICIAN SIGNATURE: TIME: DATE: Electronically signed by: YAHAIRA ROWELL 08/16/17 16:02 FOOT COMPLETE RT Observed: 08/14/2017 Status: F Source: [facility] [place] 8:57 AM [place] [address] Patient: SARAH HOSKINS Kameron Phone#: : 1955 Age: 61 Gender: M Pt. Type: Out Account: [id number] Location: 062 Ordering: BRICE ROWELL Exam Date: 08/14/2017/8:47 Family Phys: EZE BOLIVAR Charge Code: [id number] Physician: Benton Order #: [id number] DLP Dose#: PROCEDURE: X-RAY FOOT RT COMPLETE MIN 3 VIEWS COMPARISON: [facility], XR, FOOT RT COMPLETE, 08/01/2017, 9:40. INDICATIONS: Post operative FINDINGS: BONES: There has been interval surgical intervention with removal of large osseous spurring at the distal first metatarsal. SOFT TISSUES: There is expected postoperative air in the adjacent soft tissues. EFFUSION: None visible. OTHER: Negative. CONCLUSION: 1. Postoperative changes of resection of large osseous spurring at the distal first metatarsal. Dictated by: Leonora Oropeza MD on 08/14/2017 at 9:19 Approved by: Leonora Oropeza MD on 08/14/2017 at 9:19 GLUCOSE Collected: 08/14/2017 Status: F Source: [facility] 6:45 AM [facility] REPOSITORY TYPE CODE TESTS RESULT OUT OF REFERENCE UNITS RANGE LAB GLUCOSE(JAYDA 74 - 106 mg/dl AK) High GLUCOSE 126 Performed By: #### [id number] #### [facility],[address] [place] [address] CHEST PA/LAT Observed: 08/09/2017 Status: F Source: [facility] 9:13 AM [facility] REPOSITORY [place] [address] Patient: SARAH HOSKINS Phone#: : 1955 Age: 61 Gender: M Pt. Type: Out Account: [id number] Location: [facility] Ordering: BRICE ROWELL Exam Date: 08/09/2017/9:07 Family Phys: EZE YOLANDA Charge Code: [id number] Physician: Benton Order #: [id number] DLP Dose#: PROCEDURE: X-RAY CHEST PA/LAT 2 VIEWS COMPARISON: [facility], XR, CHEST PA/LAT, 06/08/2013, 15:52. INDICATIONS: Pre-operation FINDINGS: LUNGS: Normal. No significant pulmonary parenchymal abnormalities. VASCULATURE: Normal. Unremarkable pulmonary vasculature. CARDIAC: Normal. No cardiac silhouette abnormality or cardiomegaly. MEDIASTINUM: Normal. No visible mass or adenopathy. PLEURA: Normal. No effusion or pleural thickening. BONES: Normal. No fracture or visible bony lesion. OTHER: Negative. CONCLUSION: No acute disease. No significant change has occurred. Dictated by: Roselia Olmstead MD on 08/09/2017 at 9:17 Approved by: Roselia Olmstead MD on 08/09/2017 at 9:17 HEMOGLOBIN Collected: 08/09/2017 Status: F Source: [facility] [place] 9:05 AM [facility] TYPE CODE TESTS RESULT OUT OF REFERENCE UNITS RANGE LAB HEMOGLOBIN 13.0 - 17.5 g/dl (LOINC) HEMOGLOBIN 15.8 Result Comment: {HH] Performed By: #### [id number] #### [facility],[address] [place] [address] BUN Collected: 08/09/2017 Status: F Source: [place] [place] 9:05 AM [facility] TYPE CODE TESTS RESULT OUT OF RANGE REFERENCE UNITS LAB BUN(LOINC) 6 - 20 mg/dl BUN 18 Performed By: #### [id number] #### [facility],[address] [place] [address] FOOT COMPLETE RT Observed: 08/01/2017 Status: F Source: [facility] [place] 10:00 AM [place] [address] Patient: SARAH HOSKINS Phone#: : 1955 Age: 61 Gender: M Pt. Type: Out Account: [id number] Location: [facility] Ordering: BRICE ROWELL Exam Date: 08/01/2017/9:40 Family Phys: EZE BOLIVAR Charge Code: [id number] Physician: Benton Order #: [id number] DLP Dose#: PROCEDURE: X-RAY FOOT RT COMPLETE MIN 3 VIEWS COMPARISON: None. INDICATIONS: Pain FINDINGS: BONES: Calcaneal pitch angle measures 9.6, consistent with pes planus. The first intermetatarsal angle measures 9.3 cm, within normal limits. The hallux valgus angle measures 17.3, normally less than 15. There is joint space loss at the first MTP articulation. There is exuberant spurring at the first distal metatarsal and course calcifications adjacent to the joint. There are degenerative changes of the lateral sesamoid. SOFT TISSUES: There are atherosclerotic calcifications in peripheral arteries. EFFUSION: None visible. OTHER: Negative. CONCLUSION: 1. First MTP joint space loss. Exuberant calcifications adjacent to the distal first metatarsal and MTP joint. 2. Pes planus 3. Hallux valgus Dictated by: Leonora Oropeza MD on 08/01/2017 at 10:20 Approved by: Leonora Oropeza MD on 08/01/2017 at 10:29 ALLERGIES ALLERGIES DATE TYPE / CODE NAME / CODE REACTION SEVERITY SOURCE 06/26/2018 Drug oxycodone/F0060 makes him Unknown [place] Allergy/119494123(S 61579(RXNORM) feel funny [facility]) Hospital Repository Miscellaneous No Known Drug Moderate Jez Pomerene Allergy/805108228(S Allergies ([facility]) Modifier) Hospital (Qualifier Repository Value) ENCOUNTERS ENCOUNTERS ADMIT/DISCHARGE ACCOUNT ADMITTING ENCOUNTER LOCATION SOURCE NUMBER CLASS 06/26/2018/ [id number] Ambulatory BMSBuilding:B [place] 8 5 [place] Repository 06/19/2018/ [id number] Ambulatory BMSBuilding:B [place] 8 6 [place].[facility] Repository 06/19/2018/ [id number] Ambulatory [place] 8 1 [facility] ing:EN Repository 05/28/2018/ [id number] Ambulatory [place] 8 3 [facility] ing:ENRoom: Repository 14 05/28/2018/ [id number] Ambulatory BMSBuilding:B [place] 8 8 [place].[facility] Repository 05/15/2018/ [id number] Ambulatory BMSBuilding:B [place] 8 9 [place] Repository 04/14/2018/ [id number] ARE[place], Ambulatory Jez P[place]re[address] Repository 04/14/2018 [id number] [place], [facility] Repository 03/12/2018/ [id number] [place], [address] Repository 11/12/2017/ [id number] DR FADI Emergency [facility] [place] [address] 8 CELINA E oom: ERBed: A [facility] Repository 08/20/2017/ [id number] ANATOLY FALCON Emergency Buildin[address] [place] [address] 8 DO oom: ERBed: I [facility] Repository 08/14/2017/ [id number] BRICE ROWELL Ambulatory [address] [place] [address] 8 DPM oom: AMB1 [facility] Repository 08/09/2017/ [id number] BRICE ROWELL Ambulatory [facility] 8 DPM [facility] Repository 08/01/2017 [id number] BRICE ROWELL Ambulatory [facility] Repository PAYERS PAYERS ENCOUNTER GUARANTOR PAYER SUBSCRIBER SOURCE 06/26/2018 SARAH Awad Primary SARAH Colmenares [id number] CR [facility] [address] Number: [id number] [facility] [address]Yer: [id number] Repository Date:2192-48-98[address] ) [address], [place] [address]QF: 06/26/2018 Secondary NOT GIVENUNK [place] Insurance:SELF PAY [facility] Number: Effective Repository Date:2018-06-26 06/19/2018 SARAH Awad Primary SARAH Colmenares [id number] CR Insurance:[facility]: [address] Number: [id number] Healthcare Facility [address]Rey: [id number] Repository Date:9912-34-36DN [address] ([address]) [address], [place] [address]UZ: 06/19/2018 Secondary NOT GIVENUNK [place] Insurance:SELF PAY [facility] Number: Effective Repository Date:2018-06-19 06/19/2018 SARAH Awad Primary SARAH Colmenares [id number] CR Insurance:[facility]: [address] Number: [id number] Healthcare Facility [address]Yro: [id number] Repository Date:5166-37-38IZ [address] () [address], [place] [address]ZN: 06/19/2018 Secondary NOT GIVENUNK [place] Insurance:SELF PAY [facility] Number: Effective Repository Date:2018-05-28 05/28/2018 SARAH L Primary SARAH Colmenares [id number] CR Insurance:[employer] JACOBSDOB: [address] Number: [id number] Healthcare Facility [address]Iyq: [id number] Repository Date:9617-85-45LD [address] () [address], [place] [address]RP: 05/28/2018 Secondary NOT GIVENUNK [place] Insurance:SELF PAY [facility] Number: Effective Repository Date:2018-05-16 05/28/2018 SARAH L Primary SARAH L [place] [id number] CR Insurance:[employer] JACOBSDOB: [address] Number: [id number] Healthcare Facility [address]Xot: [id number] Repository Date:8629-47-92ZC BOX () [address] [place] [address]QU: 05/28/2018 Secondary NOT GIVENUNK [place] Insurance:SELF PAY [facility] Number: Effective Repository Date:2018-05-28 05/15/2018 SARAH Primary SARAH HOSKINSDOB: [place] [id number] Insurance:[employer] [id number] cy Number: [address] [id number] [address]Gwf: Date:0252-50-24ZP [address] [place] [address] () [address]VN: 05/15/2018 Secondary NOT GIVENUNK [place] Insurance:SELF PAY [facility] Number: Effective Repository Date:2018-05-15 04/14/2018 SARAH L Primary SARAH L Jez Tylre ANGELOB: Insurance:AULTCAREPoli GATOB: [place] cy Number: [id number] [facility] CR [id number] CR Repository [address] [place] [address], Date:Plan Name:[address] [address]Cma: [place] [address] () 04/14/2018 SARAH L Primary SARAH HOSKINSDOB: Jez ANGELOB: Insurance:[facility] [id number] [place] [address] Number: [address] [place] [address], Repository [address] [place] [address], [id number] [place] [id number] [place] [address]Cgi: Date:Plan Name:[facility] [address] () [id number]: 03/12/2018 SARAH L Primary SARAH HOSKINSDOB: Jez ANGELOB: Insurance:[facility] [id number] [place] [address] CR Number: [address] [place] [address], Repository [address] [place] [address], [id number] [place] [id number] [place] [address]Xsb: Date:Plan Name:A2 [address] () [id number]: 11/12/2017 SARAH L Primary SARAH HOSKINSDOB: Jez ANGELOB: Insurance:[facility] [id number] [place] [address] CR Number: [address] [place] [address], Repository [address] [place] [address], [id number] [place] [phone] [place] [id number]: Date:Plan Name:A2 [address] [place] [address] () [address]YT: 08/20/2017 SARAH L Primary SARAH JACOBSDOB: Jez ANGELOB: Insurance:[employer] [id number] [place] OUTPATIENTPolicy [address] [place] [address] CR Number: [address] [place] [address], Repository [address] [place] [address], [id number] [place] [id number] [place] [id number]: Date:Plan Name:A2PO [address] [place] [address] () [address]OH: 08/14/2017 SARAH L Primary SARAH GATODOB: Jez ANGELOB: Insurance:[employer]ARE [id number] [place] OUTPATIENTPolicy [address] [place] [address] RD Number: [address] [place] [address], Repository [address] [place] [address], [id number] [place] [id number] [place] [id number]: Date:Plan Name:A2PO [address] [place] [address] () [address]JI: 08/09/2017 SARAH L Primary SARAH JACOBSDOB: Jez HOSKINSDOB: Insurance:[facility] [id number] [place] OUTPATIENTPolicy [address] [place] [address] RD Number: [address] [place] [address], Repository [address] [place] [address], [id number] [place] [id number] [place] [id number]: Date:Plan Name:A2PO [address] () [id number]: 08/01/2017 SARAH L Primary SARAH HOSKINSDOB: Jez HOSKINSDOB: Insurance:[facility] [id number] [place] OUTPATIENTPolicy [address] [place] [address] RD Number: [address] [place] [address], Repository [address] [place] [address], [id number] [place] [id number] [place] [id number]: Date:Plan Name:A2PO [address] [place] [address] () [address]DC:
== END 2018-06-19 08:17 | disposition home or self-care (01) ==
LOC: EN 07:34
PROVIDERS: Family Provider Family Medicine; PCP Family Medicine; Referring Provider Surgery; Visit Provider Surgery
PROC: F00ZJWZ Instrumental Swallowing and Oral Function Assessment using Swallowing Equipment (ICD-10-PCS; CPT 43235; principal; 2018-06-19 07:25)
DX: R13.10 Dysphagia, unspecified (principal)
CPT/HCPCS: 91010

== ENCOUNTER 2021-07-31 07:11 | Outpatient (CLI) | payer MEDICARE, OTHER, SELFPAY ==
--- NOTE | 2021-07-31 07:14 | ECHOCS_ITS ---
Reason For Study: SYNCOPE Procedure This was a 2D Doppler, Color Flow transthoracic echocardiogram. Contrast injection was performed. The study was technically difficult. Exam performed in department. Left Ventricle Normal LV size. Left ventricular systolic function is normal. The estimated ejection fraction is 65 %. No regional wall motion abnormalities noted. Right Ventricle Normal RV size. Normal systolic function. Atria Normal left atrium. Normal right atrium. Mitral Valve Normal mitral valve. Tricuspid Valve Normal tricuspid valve. Mild (1+) tricuspid valve insufficiency. Pulmonary artery systolic pressure is 26 mmHg. Aortic Valve Trisinus/trileaflet aortic valve. Mild focal aortic valve calcification. Pulmonic Valve Normal pulmonic valve. Great Vessels Normal aortic root. The pulmonary artery is normal size. Normal inferior vena cava. Pericardium/Pleural No pericardial effusion. Medication Diluted definity 2.0ml given slow IV push to enhance endocardial definition. MMode/2D Measurements & Calculations LVIDd: 4.2 cm IVSd: 0.89 cm Ao root diam: 3.9 cm LVIDs: 2.5 cm LVPWd: 0.89 cm RVDd: 3.9 cm FS: 38.7 % LAV(MOD-bp): 42.2 ml LVAd ap4: 33.7 cm2 LVAd ap2: 38.3 cm2 LAV(MOD-bp) Indexed: 22.7 ml/m2 LVLd ap4: 8.1 cm LVLd ap2: 8.8 cm LAV(MOD-sp2): 44.4 ml EDV(MOD-sp4): 113.1 ml EDV(MOD-sp2): 136.5 ml LAV(MOD-sp4): 40.7 ml EDV(sp4-el): 119.1 ml EDV(sp2-el): 140.9 ml LVAs ap4: 21.0 cm2 LVAs ap2: 21.7 cm2 LVLs ap4: 7.3 cm LVLs ap2: 7.3 cm ESV(MOD-sp4): 50.4 ml ESV(MOD-sp2): 53.3 ml ESV(sp4-el): 51.5 ml ESV(sp2-el): 54.6 ml EF(MOD-sp4): 55.5 % EF(MOD-sp2): 60.9 % EF(sp4-el): 56.8 % SV(MOD-sp4): 62.7 ml SV(MOD-sp2): 83.2 ml SV(sp4-el): 67.7 ml LA A4 area: 16.0 cm2 LA dimension(2D): 3.6 cm RA A4 area: 13.9 cm2 Doppler Measurements & Calculations MV E max baltazar: 79.3 cm/sec Lat Peak E' Baltazar: 6.7 cm/sec Med Peak E' Baltazar: 5.1 cm/sec E/E' lat: 11.8 E/E' med: 15.6 Ao V2 max: 128.4 cm/sec LV V1 max: 115.0 cm/sec PA V2 max: 94.2 cm/sec Ao max P.6 mmHg LV V1 max P.3 mmHg TR max baltazar: 234.4 cm/sec TR max P.1 mmHg ECHO/Echo Complete W/ Contrast Interpretation Summary Normal LV size. Left ventricular systolic function is normal. The estimated ejection fraction is 65 %. Pulmonary artery systolic pressure is 26 mmHg. Contrast injection was performed. Ordering Physician: Fernando Maldonado Referring Physician: EZE GUERRERO Performed By: Estefani Hansen, RDCS, RVT
--- NOTE | 2021-07-31 07:14 | CDU_ITS ---
Reason For Study: Syncope Rt. Velocities/BP Lt. Velocities/BP Prox CCA 104.7/25.2 cm/sec. Prox CCA 115.6/27.9 cm/sec. Mid CCA 116.5/27.8 cm/sec. Mid CCA 101/29.8 cm/sec. Dist CCA 83.9/22.6 cm/sec. Dist CCA 91.9/29.8 cm/sec. Prox ICA 71.8/15.2 cm/sec. Prox ICA 79.1/24.3 cm/sec. Mid ICA 68.1/27.9 cm/sec. Mid ICA 77.3/33.4 cm/sec. Dist ICA 63/22.5 cm/sec. Dist ICA 84.6/38.9 cm/sec. Rt. ICA/CCA = 0.7. Lt. ICA/CCA = 0.8. Prox ECA 117.4/22.5 cm/sec. Prox ECA 70/13.3 cm/sec. Rt. Vert. 38.8/14.6 cm/sec. Lt. Vert. 44.3/13.5 cm/sec. Right Extracranial There is intimal thickening but no significant atherosclerotic plaque noted in the right common carotid artery. There is heterogeneous, irregular atherosclerotic plaque noted in the right internal carotid artery. There is intimal thickening but no significant atherosclerotic plaque noted in the right external carotid artery. Antegrade flow is noted in the right vertebral artery. Left Extracranial There is intimal thickening but no significant atherosclerotic plaque noted in the left common carotid artery. There is heterogeneous, smooth atherosclerotic plaque noted in the left internal carotid artery. There is no significant atherosclerotic plaque noted in the left external carotid artery. Antegrade flow is noted in the left vertebral artery. Procedure Carotid Duplex [id number]. This is a Carotid Duplex examination using B-mode, color flow and specral Doppler. Exam performed in department. VL/Carotid Duplex Ultrasound Interpretation Summary Irregular calcific plaque in the proximal right internal carotid artery with le ss than 50% stenosis Less than 50% stenosis right external carotid artery Heterogenous smooth plaque within the proximal left internal carotid artery wit h less than 50% stenosis Less than 50% stenosis left external carotid artery Patent and antegrade vertebral arteries bilaterally Ordering Physician: Fernando Maldonado Referring Physician: Antionette Bolivar Performed By: Elizabet Simon RVT
--- NOTE | 2021-07-31 17:40 | STRESSREP ---
Stress Test Report Exercise myocardial perfusion stress test. 65-year-old male with a history of supraventricular tachyarrhythmia. Medications lisinopril omeprazole. Stress protocol: Resting EKG demonstrates normal sinus rhythm with a rate of 72 bpm normal intervals are noted resting blood pressure is 124/70 mmHg. The patient exercised according to regular Jesús protocol for total duration of 10 minutes. Patient completed 1 minute into stage IV of the Jesús protocol. The maximum heart rate attained was 142 bpm which was 92% of max impact at heart rate the maximum workload was 13.4 metabolic equivalents. At rest there were no ST or T wave changes noted to suggest ischemia and at peak exercise upsloping ST changes only were noted with did not meet the criteria for ischemia. No clinical angina was noted and no arrhythmias were noted. The peak blood pressure was 164/84 mmHg. Rate-pressure product was 18,602. Myocardial perfusion protocol. 11.4 mCi of technetium 99m sestamibi was injected at rest. The patient exercised according to regular Jesús protocol for total duration of 10 minutes and at peak exercise 33.9 mCi of technetium 99m sestamibi was injected stress images were obtained stress and rest images were reconstructed and compared in the short axis vertical long and horizontal long axis. Gated images were also obtained per Perfusion SPECT analysis: Review of the stress images demonstrate normal uptake of tracer noted in all areas of the myocardium. The resting images similarly demonstrate normal uptake of tracer noted in all areas of the myocardium. There is no area noted on the stress or resting images to suggest reperfusion abnormalities. No previous infarct is noted. Gated SPECT analysis: The gated ejection fraction is 73%. Conclusion: Normal exercise myocardial perfusion stress test at a high workload. No clinical angina noted.
== END 2021-07-31 23:59 | disposition short-term general hospital (02) ==
LOC: CVS 07:14
PROVIDERS: PCP Family Medicine; Referring Provider Internal Medicine Cardiovascular Disease; Visit Provider Internal Medicine Cardiovascular Disease
DX: R55 Syncope and collapse (principal); I47.1 Supraventricular tachycardia; R06.00 Dyspnea, unspecified
CPT/HCPCS: 78452; 93017; 93306; 93880; A9500; Q9957; A4216; C8929

== ENCOUNTER → 2023-08-28 | Outpatient (CLI) | payer MEDICARE, OTHER, SELFPAY ==
--- OUTSIDE RECORDS SUMMARY | 2023-08-28 07:06 | XMS RPT_ITS | CCD ---
Author Name Unknown Address [address] [place] [address] Organization [facility] Care Team Providers Care [employer] Name Role Phone YOLANDA BUCKLEY, EZE Primary Care Unavailable BAKER, BELIA Attending Unavailable HILLS, EZE Primary Care Unavailable REPUBLIC, EZE Admitting Unavailable HILLS, EZE Attending Unavailable HILLS, EZE Consulting Unavailable PROVIDER, UNKNOWN Consulting Unavailable REPUBLIC, EZE Consulting Unavailable TACOMA, BELIA Attending Unavailable BAKER, BELIA Primary Care Unavailable BAKER, BELIA Admitting Unavailable PROVIDER, UNKNOWN Consulting Unavailable REPUBLIC, EZE Consulting Unavailable REPUBLIC, EZE Primary Care Unavailable REPUBLIC, EZE Admitting Unavailable REPUBLIC, EZE Attending Unavailable PROVIDER, UNKNOWN Consulting Unavailable REPUBLIC, EZE Consulting Unavailable REPUBLIC, EZE Primary Care Unavailable REPUBLIC, EZE Admitting Unavailable REPUBLIC, EZE Attending Unavailable PROVIDER, UNKNOWN Consulting Unavailable REPUBLIC, EZE Primary Care Unavailable REPUBLIC, EZE Admitting Unavailable REPUBLIC, EZE Attending Unavailable REPUBLIC, EZE Consulting Unavailable PROVIDER, UNKNOWN Consulting Unavailable REPUBLIC, EZE Consulting Unavailable REPUBLIC, EZE Primary Care Unavailable REPUBLIC, EZE Admitting Unavailable REPUBLIC, EZE Attending Unavailable PROVIDER, UNKNOWN Consulting Unavailable REPUBLIC, EZE Consulting Unavailable BAKER, BELIA Attending Unavailable BAKER, BELIA Primary Care Unavailable BAKER, BELIA Admitting Unavailable PROVIDER, UNKNOWN Consulting Unavailable HILLS, EZE Consulting Unavailable BAKER, BELIA Attending Unavailable BAKER, BELIA Primary Care Unavailable BAKER, BELIA Admitting Unavailable PROVIDER, UNKNOWN Consulting Unavailable Problems Active Problems Problem Classification Problem Date Documented Da te Episodic/Chronic Diabetes mellitus with complications (4 sources) Type 2 diabetes mellitus with hyperglycemia; Translations: [Type 2 diabetes mellitus with hyperglycemia] Onset: 09-12-2022 Chronic Essential hypertension (1 source) Essential (primary) hypertension; Translations: [Essential (primary) hypertension] Onset: 08-22-2022 Chronic Unclassified (2 sources) Calculus of bile duct without cholangitis or cholecystitis; Translations: [Calculus of bile duct without cholangitis or cholecystitis] Onset: 09-21-2022 Past or Other Problems Problem Classification Problem Date Documented Da te Episodic/Chronic Abdominal pain (1 source) Right upper quadrant pain; Translations: [Right upper quadrant pain] Onset: 09-12-2022 Episodic Hemorrhoids (2 sources) Residual hemorrhoidal skin tags; Translations: [Other hemorrhoids] Onset: 08-22-2022 Episodic Other gastrointestinal disorders (3 sources) Diarrhea, unspecified; Translations: [Diarrhea, unspecified] Onset: 08-22-2022 Episodic Other screening for suspected conditions (not mental disorders or infectious disease) (2 sources) Encounter for screening for malignant neoplasm of prostate; Translations: [Encounter for screening for cardiovascular disorders] Onset: 03-20-2023 Episodic Results Test Name Value Interpretation Reference Range Facil ity Encounters Encounter Date Encounter Type Care Provider Facility Start: 07-04-2023 End: 07-04-2023 ambulatory [facility] Start: 03-20-2023 End: 03-20-2023 ambulatory [facility] Start: 03-20-2023 End: 03-20-2023 ambulatory [facility] Start: 09-21-2022 End: 09-26-2022 [facility] Facility:A Start: 09-21-2022 End: 09-21-2022 ambulatory [facility] Start: 09-12-2022 End: 09-12-2022 ambulatory [facility] Start: 09-12-2022 End: 09-12-2022 ambulatory [facility] Start: 09-12-2022 End: 09-12-2022 Encounter for preprocedural laboratory examination BELIA BAKER [facility] Start: 08-22-2022 End: 08-22-2022 [facility] Start: 07-20-2022 End: 07-20-2022 [facility] Procedures Date Procedure Procedure Detail Performing Clinician Start: 07-04-2023 PSA screening [facility] Payers Date Payer Category Payer Medicare [id number] 2022 Unknown [id number] 1955 Unknown [id number] 2.16.8 [id number] 1955 Unknown [id number] 2.16.8 [id number] 1955 Unknown [id number] 2.16.8 [id number] 1954 Unknown [id number] 2.16.8 [id number] 1954 Unknown [id number] 2.16.84 [id number] 1954 Unknown [id number] 2.16.84 [id number] 1954 Unknown [id number] 2.16.84 [id number] 1954 Unknown [id number] 2.16.84 [id number] 1955 Unknown [id number] 2.16.84 [id number] Medicare [id number] Clinical Note 08-25-2022 Note Date & Type Note Facility 08-25-2022 Note . MICRO - Microbiology PROCEDURE: Stool Culture [^1 *1] SOURCE: Stool BODY SITE: COLLECTED DATE/TIME: 08/22/2022 11:20 EST RECEIVED DATE/TIME: 08/22/2022 19:48 EST START DATE/TIME: 08/22/2022 19:48 EST FREE TEXT SOURCE: FINAL REPORTS Final Report [] Verified Date/Time/Personnel: 08/25/2022 11:11 EST Normal stool mark present. Salmonella: Negative Shigella: Negative Campylobacter: Negative PRELIMINARY REPORTS Preliminary Report [] Verified Date/Time/Personnel: 08/24/2022 10:56 EST Normal stool mark present. Negative for stool pathogens at 48 hours. Final report to follow. Interpretive Data ^1: Culture Stool Requests for alternative pathogens including Yersinia, E. coli 0157, C. difficile toxin, Rotavirus, Giardia and parasites require specific requests. Performing Locations *1: This test was performed at: [address], [address] [place] [address] ([place]) Clinical Note 08-23-2022 Note Date & Type Note Facility 08-23-2022 Note . MICRO - Microbiology PROCEDURE: Shiga Toxins 1 and 2 [[id number]: [id number] ^1 *1] SOURCE: Stool BODY SITE: COLLECTED DATE/TIME: 08/22/2022 19:48 EST RECEIVED DATE/TIME: 08/22/2022 19:48 EST START DATE/TIME: 08/22/2022 19:49 EST FREE TEXT SOURCE: FINAL REPORTS Final Report [] Verified Date/Time/Personnel: 08/23/2022 08:35 EST Absence of Shiga toxin 1 Absence of Shiga toxin 2 Order Comments O1: Shiga Toxins 1 and 2 ordered by lab as part of Culture Stool Panel Interpretive Data ^1: Shiga Toxins 1 and 2 Testing performed by immunochromatography. Performing Locations *1: This test was performed at: [address], [address] [place] [address] ([place]) Summary Purpose Family History No Family History Records FoundNo Family History Records FoundNo Family History Records FoundNo Family History Records FoundNo Family History Records Found Advance Directives No Advanced Directives Records FoundNo Advanced Directives Records FoundNo Advanced Directives Records FoundNo Advanced Directives Records FoundNo Advanced Directives Records Found Additional Source Comments (unrecognized sect ion and content) No Status Records FoundNo Status Records FoundNo Status Records FoundNo Status Records FoundNo Status Records Found INFORMATION SOURCE (unrecogn ized section and content) DATE CREATED AUTHOR AUTHOR'S ORGANIZ ATION 05/28/2021 [facility] DATE CREATED AUTHOR AUTHOR'S ORGANIZ ATION 09/29/2022 [facility] ([place]) DATE CREATED AUTHOR AUTHOR'S ORGANIZ ATION 03/23/2023 [facility] DATE CREATED AUTHOR AUTHOR'S ORGANIZ ATION 07/05/2023 [facility] FOR RECORDS PERTAINING TO PATIENTS WHO ARE OR HAVE BEEN ENROLLED IN A CHEMICAL DEPENDENCY/SUBSTANCEABUSE PROGRAM, SOME INFORMATION MAY BE OMITTED. This clinical summary was aggregated from multiple sources. Caution should be exercised in using it in the provision of clinical care. This summary normalizes information from multiple sources, and as a consequence, information in this document may materially change the coding, format and clinical context of patient data. In addition, data may be omitted in some cases. CLINICAL DECISIONS SHOULD BE BASED ON THE PRIMARY CLINICAL RECORDS. [employer] provides no warranty or guarantee of the accuracy or completeness of information in this document.
--- NOTE | 2023-08-29 06:43 | STRESSREP_ITS ---
Stress Test Report Exercise myocardial perfusion stress test. 67-year-old man with a history of chest pain Stress protocol: Resting EKG demonstrates normal sinus rhythm with a rate of 66 bpm resting blood pressure is 116/82 mmHg. The patient exercised according to the regular Jesús protocol for a total duration of 10 minutes attaining a maximum heart rate of 129 bpm which was 84% of maximum predicted heart rate; the maximum workload was 13.4 metabolic equivalents. At rest there were no ST or T wave changes noted to suggest ischemia and at peak exercise upsloping ST changes only were noted which did not meet the criteria for ischemia. No clinical angina was noted the test was terminated due to the target heart rate being achieved/fatigue. The peak blood pressure was 154/68 mmHg. Rate-pressure product was 18,400. Myocardial perfusion protocol. 13.1 mCi of technetium 99m sestamibi was injected at rest. The patient exercised according to regular Jesús protocol for total duration of 10 minutes and at peak exercise 40.3 mCi of technetium 99m sestamibi was injected stress images were obtained stress and rest images were reconstructed in comparing the short axis vertical long and horizontal long axis. Gated images were also obtained. Perfusion SPECT analysis: Review of the stress images demonstrate normal uptake of tracer noted in all are as of the myocardium. The resting images similarly demonstrate normal uptake of tracer noted in all areas of the myocardium. No areas of reversibility are noted to suggest ischemia no previous infarct was noted. Gated SPECT analysis: The gated ejection fraction is 76%. Conclusion: Normal exercise myocardial perfusion stress test at a high workload Preserved ejection fraction.
== END | disposition home or self-care (01) ==
LOC: CVS 07:04
PROVIDERS: PCP Family Medicine; Referring Provider Nurse Practitioner Gerontology; Visit Provider Nurse Practitioner Gerontology
DX: R07.9 Chest pain, unspecified (principal); R06.09 Other forms of dyspnea
CPT/HCPCS: 78452; 93017; A9500; A4216

== ENCOUNTER → 2024-10-28 | Outpatient (CLI) | payer MEDICARE, OTHER, SELFPAY ==
[2024-10-28 13:16] VITALS: BP 120/81; PULSE 64; RESP 16; O2SAT 97; BMI 24.3
--- NOTE | 2024-10-28 13:27 | CT_ITS ---
PROCEDURE: LIMITED CHEST CT CARDIAC ONLY REASON FOR EXAM: CHEST PAIN TECHNIQUE: Supine chest CT without and with contrast. One or more dose reduction techniques were used (e.g., Automated exposure control, adjustment of the mA and/or kV according to patient size, use of iterative reconstruction technique). COMPARISON: None FINDINGS: Hardware: None Lymph nodes: Small benign-appearing mediastinal lymph nodes. Heart and Vasculature: Normal heart size. No pericardial effusion. Atherosclerotic calcifications of the thoracic aorta. Thoracic aorta and pulmonary arteries have normal contours; noncontrast technique limits evaluation. Coronary Artery Calcifications: Present Lungs and Airways: Mild degree of bibasilar linear atelectasis. Pleura: Unremarkable Upper Abdomen: Fatty infiltration of the liver. Bones: Degenerative changes of the thoracic spine. CT/Limited Chest CT Cardiac Only IMPRESSION: Coronary artery calcification (CAC) is is present Reading Location: [place] [address]
[2024-10-28 13:30] VITALS: PULSE 64
[2024-10-28] MEDS: Nitroglycerin SL (ED/IMG/CATH) 0.4 MG TABLET SL (13:30)
[2024-10-28 13:36] VITALS: BP 117/78; PULSE 67; RESP 16; O2SAT 95
[2024-10-28 13:36] LABS: CREATININE FINGERSTICK < 1.0 mg/dL (0.70-1.30); EGFR FINGERSTICK > 60.0000 mL/min (>60)
--- NOTE | 2024-10-29 16:09 | CCTA_ITS ---
CCTA w/Cont Coronary Arteries Date of Study:: 10/29/24 Family history Coronary Calcium Scoring: High-resolution Computed Tomographic imaging of the chest was performed on [10/28/2024], with particular attention paid to the coronary arteries. Intravenous contrast agent was administered per protocol and images reconstructed and displayed. LEFT MAIN CORONARY ARTERY: Arises from the left coronary cusp with no significant stenosis. Coronary calcium score of 0 noted. [] LEFT ANTERIOR DESCENDING CORONARY ARTERY: Arises from the left main coronary artery and is a medium size vessel. There is mild atherosclerotic plaquing note d with nonobstructive disease present. Coronary calcium score is noted to be 182. [] LEFT CIRCUMFLEX CORONARY ARTERY: Arises from the left main coronary artery and courses in the AV groove with minimal atherosclerotic plaquing noted focal plaque present with no significant stenosis noted coronary calcium score 12.3. [] RIGHT CORONARY ARTERY: Dominant right coronary artery arising from the right coronary cusp with focal distal calcification noted with no obstructive plaque present. Coronary calcium score of 15.5. CORONARY CALCIUM SCORE: Total coronary calcium score is 210 with a percentile ranking 50 to 75%. Conclusion: CT angio with nonobstructive coronary artery disease noted and mild to moderate atherosclerotic plaquing noted, predominantly in the LAD. []
== END | disposition home or self-care (01) ==
LOC: CT 12:54
PROVIDERS: PCP Family Medicine; Referring Provider Nurse Practitioner Family; Visit Provider Nurse Practitioner Family
DX: R07.9 Chest pain, unspecified (principal); R55 Syncope and collapse; I47.10 Supraventricular tachycardia, unspecified; I10 Essential (primary) hypertension
CPT/HCPCS: 75571; 75574; 76380; Q9967; A4216